=== PATIENT | female | born 1940 | race Caucasian/White ===

== ENCOUNTER 2018-06-21 15:38 | Outpatient (CLI) | payer OTHER | END 2018-06-21 15:47 | disposition home or self-care (01) | LOC: LAB 15:38 | DX: I49.8 Other specified cardiac arrhythmias (principal); D64.89 Other specified anemias; D68.8 Other specified coagulation defects; E88.89 Other specified metabolic disorders; N39.0 Urinary tract infection, site not specified; A49.02 Methicillin resistant Staphylococcus aureus infection, unspecified site; E55.9 Vitamin D deficiency, unspecified; M85.88 Other specified disorders of bone density and structure, other site ==

== ENCOUNTER 2018-06-21 16:36 | Outpatient (CLI) | payer OTHER | END 2018-06-21 16:52 | disposition home or self-care (01) | LOC: RAD 16:36 | DX: Z76.89 Persons encountering health services in other specified circumstances (principal); S82.122A Displaced fracture of lateral condyle of left tibia, initial encounter for closed fracture ==

== ENCOUNTER 2018-06-23 08:31 | Inpatient (IN) | payer OTHER ==
[~2018-06-23] VITALS: Ht 157.5 cm; Wt 61.2 kg
[2018-06-23] MEDS ORDERED: AVAPRO150 MG PO (08:46)
[2018-06-23] MEDS ORDERED: LIPITOR20 MG PO (08:47)
[2018-06-28] MEDS ORDERED: XARELTO10 MG PO (08:38)
== END 2018-06-28 11:21 | disposition home or self-care (01) | DRG 489 ==
LOC: O/R 06-26 07:03 → SURH 06-26 07:03 → SURG 06-26 08:30 → SURH 06-26 16:18
PROVIDERS: Orthopaedic Surgery
PROC: 0QSH04Z Reposition Left Tibia with Internal Fixation Device, Open Approach (ICD-10-PCS; 2018-06-26)
PROC: 0QR Lower Bones, Replacement (ICD-10-PCS; 2018-06-26)
PROC: 0MQP0ZZ Repair Left Knee Bursa and Ligament, Open Approach (ICD-10-PCS; 2018-06-26)
PROC: 0SQD0ZZ Repair Left Knee Joint, Open Approach (ICD-10-PCS; principal; 2018-06-26 11:45)
DX: S82.142A Displaced bicondylar fracture of left tibia, initial encounter for closed fracture (principal); W03.XXXA Other fall on same level due to collision with another person, initial encounter; G57.32 Lesion of lateral popliteal nerve, left lower limb; I10 Essential (primary) hypertension; Y93.89 Activity, other specified; Y92.89 Other specified places as the place of occurrence of the external cause; Y99.8 Other external cause status

== ENCOUNTER 2018-08-02 09:29 | Outpatient (CLI) | payer OTHER ==
[~2018-08-02 09:29] MED LIST: AVAPRO150 MG PO; LIPITOR20 MG PO; XARELTO10 MG PO
== END 2018-08-02 09:34 | disposition home or self-care (01) ==
LOC: RAD 09:29
DX: M25.562 Pain in left knee (principal)

== ENCOUNTER 2018-08-03 08:13 | Outpatient (CLI) | payer OTHER | END 2018-08-03 08:25 | disposition home or self-care (01) | LOC: LAB 08:13 | DX: E55.9 Vitamin D deficiency, unspecified (principal); E21.2 Other hyperparathyroidism; E88.89 Other specified metabolic disorders; M81.8 Other osteoporosis without current pathological fracture; E56.1 Deficiency of vitamin K; D64.89 Other specified anemias; M06.4 Inflammatory polyarthropathy; M85.88 Other specified disorders of bone density and structure, other site ==

== ENCOUNTER 2018-08-22 07:23 | Outpatient (CLI) | payer OTHER | END 2018-08-22 07:30 | disposition home or self-care (01) | LOC: RAD 07:23 → LAB 07:23 | DX: D64.89 Other specified anemias (principal); M06.4 Inflammatory polyarthropathy; S82.122D Displaced fracture of lateral condyle of left tibia, subsequent encounter for closed fracture with routine healing ==

== ENCOUNTER 2018-10-05 13:09 | Outpatient (CLI) | payer OTHER | END 2018-10-05 13:19 | disposition home or self-care (01) | LOC: RAD 501 13:09 | DX: S82.122D Displaced fracture of lateral condyle of left tibia, subsequent encounter for closed fracture with routine healing (principal) ==